=== PATIENT | male | born 1940 | race Caucasian/White ===

== ENCOUNTER 2019-07-16 05:42 | Day surgery (SDC) | payer MEDICARE, OTHER ==
[~2019-07-16] VITALS: Ht 182.9 cm; Wt 107.0 kg
[~2019-07-16 05:42] MED LIST: ASPIR 8181 M1 PO; ERLEADA60 MG PO; GLIP5 PO; HYDCHL25 PO; LISI20 PO; LOVA40 PO; LUPRON DEPOT45 MG IM; METF500 PO; NITR.4SL SL; WARF10 PO
--- NOTE | 2019-07-16 10:43 | NUR ---
POST OP S/P DUAL CHAMBER PACEMAKER TO LEFT CHEST WALL BY DR. ESTRADA TODAY. LEFT CHEST WALL DRESSING IS CDI WITH ICE BAG IN PLACE AND LEFT ARM IN SLING. PT EDUCATED ON LEFT ARM RESTRICTIONS AND VERBALIZED AN UNDERSTANDING. PT REPORTS MINIMAL PAIN AND DENIES NEED FOR PAIN MEDICATIONS. PT UP WITH SBA FROM W/C TO BED. ORDERED TELE FROM PCU AND WILL PLACE ONCE BOX ARRIVES TO UNIT. VSS. CALL LIGHT WITHIN REACH.
--- NOTE | 2019-07-16 16:32 | NUR ---
SHIFT SUMMARY NO ACUTE CHANGES SINCE ARRIVAL TO UNIT S/P DUAL CHAMBER PACEMAKER TO LEFT CHEST WALL. PT REPORTS 2/10 PAIN BUT DENIES NEED FOR PAIN MEDS. INDEP IN ROOM. LEFT ARM REMAINS IN SLING. PT FOLLOWING RESTRICTIONS. TELE IN PLACE. CALL LIGHT WITHIN REACH.
--- NOTE | 2019-07-17 05:37 | NUR ---
SHIFT SUMMARY: PT S/P INSERTION OF PACEMAKER. GAUZE DRESSING TO LEFT CHEST WALL CDI. SPLING IN PLACE AND PT COOPERATING WITH RESTRICTIONS. PT BLANCA PO. INDEPENDENT IN ROOM. DENIES NEED FOR PAIN MEDICATION. TELE SHOWS A/FIB IN 80'S. POSSIBLE DISCHARGE TODAY.
--- NOTE | 2019-07-17 07:50 | NUR ---
DR. WHITE NOTIFIED OF 8 BEATS V-TACH PER BUCKSHOT SWAGE OPERATOR. PT ASYMPTOMATIC. VSS. NO NEW ORDERS.
--- NOTE | 2019-07-17 09:12 | NUR ---
TO IMAGING FOR XRAY OF LEFT CHEST, PACEMAKER
--- NOTE | 2019-07-17 12:55 | NUR ---
DISCHARGE DISCHARGE INSTRUCTIONS, POST DEVICE IMPLANT INSTRUCTIONS, MEDICATION LIST AND FOLLOW UP APPOINTMENTS REVIEWED WITH PT. QUESTIONS ANSWERED. PT AND SPOUSE VERBALLY INDICATED UNDERSTANDING OF ALL INSTRUCTIONS RECEIVED. TELE BOX REMOVED AND RETURNED TO PCU
== END 2019-07-17 13:00 | disposition home or self-care (01) ==
LOC: MHTC 05:42 → SURS 10:05 → MHTC 07-17 13:00
DX: I49.5 Sick sinus syndrome (principal); I44.0 Atrioventricular block, first degree; I48.0 Paroxysmal atrial fibrillation; I11.0 Hypertensive heart disease with heart failure; I50.9 Heart failure, unspecified; E78.5 Hyperlipidemia, unspecified; I49.3 Ventricular premature depolarization; E66.9 Obesity, unspecified; E11.40 Type 2 diabetes mellitus with diabetic neuropathy, unspecified; E78.00 Pure hypercholesterolemia, unspecified; I25.10 Atherosclerotic heart disease of native coronary artery without angina pectoris; Z95.5 Presence of coronary angioplasty implant and graft; Z79.82 Long term (current) use of aspirin; Z79.01 Long term (current) use of anticoagulants; Z79.84 Long term (current) use of oral hypoglycemic drugs; Z68.32 Body mass index [BMI] 32.0-32.9, adult
CPT/HCPCS: 33208; 71045; 71046; 99152; 99153; A9270-GY; C1785; C1898; J0360; J0690; J1644; J2250; J3010; J7030; J7040; J7050

== ENCOUNTER 2022-02-13 11:37 | Emergency (ER) | payer MEDICARE ==
[~2022-02-13] VITALS: Ht 180.3 cm; Wt 94.8 kg
[2022-02-13 12:31] LABS: BASOPHILS ABSOLUTE AUTO 0.03 K/mm3 (0.00-0.23); BASOPHILS PERCENT AUTO 0 % (0-2); EOSINOPHILS ABSOLUTE AUTO 0.01 K/mm3 (0.00-0.68); EOSINOPHILS PERCENT AUTO 0 % (0-6); Hematocrit 40.2 % (37.0-53.0); Hemoglobin 13.7 g/dL (13.5-17.5); IMMATURE GRAN ABSOLUTE AUTO 0.03 K/mm3 (0.00-0.10); IMMATURE GRAN PERCENT AUTO 0 % (0-1); LYMPHOCYTES ABSOLUTE AUTO 1.07 K/mm3 (0.84-5.20); LYMPHOCYTES PERCENT AUTO 15 % (21-46); MONOCYTES ABSOLUTE AUTO 0.77 K/mm3 (0.16-1.47); MONOCYTES PERCENT AUTO 11 % (4-13); Mean Corpuscular HGB 30.2 pg (26.0-34.0); Mean Corpuscular HGB Conc 34.1 g/dL (31.5-36.5); Mean Corpuscular Volume 89 fL (80-100); Mean Platelet Volume 10.6 fL (9.1-12.4); NEUTROPHILS ABSOLUTE AUTO 5.32 K/mm3 (1.96-9.15); NEUTROPHILS PERCENT AUTO 74 % (41-73); Platelet Count 396 K/mm3 (150-400); RDW Coefficient Variation 12.6 % (11.7-14.2); RDW Standard Deviation 40.8 fL (35.1-46.3); Red Blood Cell Count 4.54 M/mm3 (4.30-5.90); White Blood Cell Count 7.23 K/mm3 (4.00-11.30)
[2022-02-13 12:48] LABS: Albumin, Blood 3.1 g/dL (3.4-5.0); Albumin/Globulin Ratio 0.8 (0.8-1.8); Bilirubin, Total 0.3 mg/dL (0.1-1.0); Calcium, Blood 9.2 mg/dL (8.5-10.1); Creatinine, Blood 1.22 mg/dL (0.60-1.20); Potassium, Blood 4.6 mmol/L (3.5-5.5); Total Protein, Blood 7.1 g/dL (6.4-8.2)
== END 2022-02-13 15:32 | disposition home or self-care (01) ==
LOC: ER 11:37
PROVIDERS: Physician Assistant
DX: R79.1 Abnormal coagulation profile (principal); T45.515A Adverse effect of anticoagulants, initial encounter; I48.91 Unspecified atrial fibrillation; Z95.0 Presence of cardiac pacemaker
CPT/HCPCS: 36415; 71045; 80053; 85025; 99283-25; A9270; J3430

== ENCOUNTER 2022-05-06 18:38 | Emergency (ER) | payer MEDICARE ==
[~2022-05-06] VITALS: Ht 180.3 cm; Wt 102.1 kg
== END 2022-05-06 23:21 | disposition home or self-care (01) ==
LOC: ER 18:38
DX: S01.512A Laceration without foreign body of oral cavity, initial encounter (principal); Y33.XXXA Other specified events, undetermined intent, initial encounter; Z79.82 Long term (current) use of aspirin; Z79.899 Other long term (current) drug therapy; Z79.84 Long term (current) use of oral hypoglycemic drugs; Z79.01 Long term (current) use of anticoagulants; Z88.8 Allergy status to other drugs, medicaments and biological substances; Z95.0 Presence of cardiac pacemaker

== ENCOUNTER 2022-12-23 14:06 | Inpatient (IN) | payer MEDICARE ==
[~2022-12-23] VITALS: Ht 180.3 cm; Wt 93.0 kg
[2022-12-23] MEDS ORDERED: METO50ER PO (14:19)
[2022-12-23] MEDS ORDERED: ELIGARD45 MG SQ (14:20)
[2022-12-23 15:11] LABS: BASOPHILS ABSOLUTE AUTO 0.02 K/mm3 (0.00-0.23); BASOPHILS PERCENT AUTO 0 % (0-2); EOSINOPHILS ABSOLUTE AUTO 0.03 K/mm3 (0.00-0.68); EOSINOPHILS PERCENT AUTO 1 % (0-6); Hematocrit 41.1 % (37.0-53.0); Hemoglobin 14.5 g/dL (13.5-17.5); IMMATURE GRAN ABSOLUTE AUTO 0.01 K/mm3 (0.00-0.10); IMMATURE GRAN PERCENT AUTO 0 % (0-1); LYMPHOCYTES PERCENT AUTO 24 % (21-46); MONOCYTES ABSOLUTE AUTO 0.43 K/mm3 (0.16-1.47); MONOCYTES PERCENT AUTO 9 % (4-13); Mean Corpuscular HGB 30.4 pg (26.0-34.0); Mean Corpuscular HGB Conc 35.3 g/dL (31.5-36.5); Mean Corpuscular Volume 86 fL (80-100); Mean Platelet Volume 12.4 fL (9.1-12.4); NEUTROPHILS ABSOLUTE AUTO 3.05 K/mm3 (1.96-9.15); NEUTROPHILS PERCENT AUTO 66 % (41-73); Platelet Count 223 K/mm3 (150-400); RDW Coefficient Variation 11.9 % (11.7-14.2); RDW Standard Deviation 37.4 fL (35.1-46.3); Red Blood Cell Count 4.77 M/mm3 (4.30-5.90); White Blood Cell Count 4.64 K/mm3 (4.00-11.30)
[2022-12-23 15:31] LABS: Albumin, Blood 3.4 g/dL (3.4-5.0); Bilirubin, Total 0.3 mg/dL (0.1-1.0); Bun/Creatinine Ratio 31.7 (12.0-20.0); Calcium, Blood 9.2 mg/dL (8.5-10.1); Creatinine, Blood 1.23 mg/dL (0.60-1.20); Globulin, Blood 3.5 g/dL (2.2-4.0); Potassium, Blood 4.7 mmol/L (3.5-5.5); Total Protein, Blood 6.9 g/dL (6.4-8.2)
[2022-12-23 16:12] LABS: Source, Urine Clean Catch
[2022-12-23 16:20] LABS: Appearance, Urine Clear (Clear); Bilirubin, Urine Neg (Neg); Blood, Urine Neg (Neg); Color, Urine Pale Yellow (P-Yellow); Glucose Qualitative, Urine 4+ (Neg); Ketones, Urine Neg (Neg); Leukocyte Esterase, Urine Neg (Neg); Nitrite, Urine Neg (Neg); Protein, Urine Neg (Neg); Specific Gravity, Urine 1.015 (1.003-1.022); Urobilinogen, Urine NORM (Normal)
[2022-12-23 23:30] VITALS: BP 154/79
[2022-12-24] VITALS (36 sets, daily range): BP systolic 81–163; BP diastolic 57–122
[2022-12-24] MEDS ORDERED: C COMPLEX1000 M1 PO (01:43)
[2022-12-24] MEDS ORDERED: ELEMENTAL ZINC30 MG PO (01:47)
[2022-12-24] MEDS ORDERED: VITAMIN D325 MC3 PO (01:48)
[2022-12-24 02:47] LABS: BASOPHILS ABSOLUTE AUTO 0.03 K/mm3 (0.00-0.23); BASOPHILS PERCENT AUTO 1 % (0-2); EOSINOPHILS ABSOLUTE AUTO 0.04 K/mm3 (0.00-0.68); EOSINOPHILS PERCENT AUTO 1 % (0-6); Hematocrit 37.4 % (37.0-53.0); Hemoglobin 12.9 g/dL (13.5-17.5); IMMATURE GRAN ABSOLUTE AUTO 0.02 K/mm3 (0.00-0.10); IMMATURE GRAN PERCENT AUTO 0 % (0-1); LYMPHOCYTES ABSOLUTE AUTO 1.64 K/mm3 (0.84-5.20); LYMPHOCYTES PERCENT AUTO 30 % (21-46); MONOCYTES PERCENT AUTO 11 % (4-13); Mean Corpuscular HGB 30.4 pg (26.0-34.0); Mean Corpuscular HGB Conc 34.5 g/dL (31.5-36.5); Mean Corpuscular Volume 88 fL (80-100); Mean Platelet Volume 11.7 fL (9.1-12.4); NEUTROPHILS PERCENT AUTO 57 % (41-73); Platelet Count 184 K/mm3 (150-400); RDW Coefficient Variation 12.1 % (11.7-14.2); RDW Standard Deviation 38.6 fL (35.1-46.3); Red Blood Cell Count 4.24 M/mm3 (4.30-5.90); White Blood Cell Count 5.43 K/mm3 (4.00-11.30)
[2022-12-24 03:05] LABS: Magnesium, Blood 1.8 mg/dL (1.6-2.4)
[2022-12-24 03:08] LABS: Albumin, Blood 2.9 g/dL (3.4-5.0); Bilirubin, Total 0.3 mg/dL (0.1-1.0); Bun/Creatinine Ratio 29.2 (12.0-20.0); Calcium, Blood 8.4 mg/dL (8.5-10.1); Creatinine, Blood 1.13 mg/dL (0.60-1.20); Globulin, Blood 2.8 g/dL (2.2-4.0); Total Protein, Blood 5.7 g/dL (6.4-8.2)
--- NOTE | 2022-12-24 06:14 | NUR ---
AOX4. NSR/A-PACED WITH FREQUENT EPISODES OF V-TACH. AMIODARONE BOLUS AND CONTINUOUS INFUSION STARTED. VTACH EPISODES PERSIST BUT LESS FREQUENTLY. PATIENT ASYMPTOMATIC DURING THESE. ROOM AIR. NPO.
--- NOTE | 2022-12-24 07:15 | NUR ---
CARE ASSUMPTION DURING BEDSIDE SHIFT REPORT William BRADLEY RN THE PT IS SITTING UP IN BED AWAKE ON RM AIR. PT'S IS AT BEDSIDE. THE PT IS ALERT AND ORIENTED LOOKING WELL DENYING ANY SYMPTOMS. PT'S MONITOR SHOWING SR 70'S TO ATRIAL PACED IN THE 70'S. BP WNL AND STABLE.
--- NOTE | 2022-12-24 14:37 | NUR ---
UPDATE THIS RN SPOKE W DR. ESTRADA REGARDING THE PLAN FOR THE PT. THIS RN WAS GIVEN ORDERS TO RESUME THE PT'S COUMADIN, ORDER FULL PACEMAKER INTEROGATION, AND FINISH THE AMIODARONE GTT. THIS RN CALLED THE [facility] AND SPOKE W SHEET METAL WORKER WHO STATED SHE WOULD "LET THEM KNOW".
--- NOTE | 2022-12-24 15:09 | NUR ---
UPDATE DR. ESTRADA CONSULTING THE PT AT BEDSIDE. AFTER CONSULT DR. ESTRADA GAVE THIS RN VERBAL ORDER FOR PO AMIODARONE 400MG BID STARTING TONIGHT AT 2100. THIS ORDER READ BACK TO DR. SZYMANSKI WHO CONFIRMED THIS WAS CORRECT. NO PLAN FOR PROCEDURE AT THIS TIME.
--- NOTE | 2022-12-24 15:33 | NUR ---
Pt. is awake, sitting up on the side of his bed and eating a meal when he welcomes my visit. Pt. is pleasant. Facilitate a life review. Listen with empathy, interest, and a calming presence. Pt. displays evidence of trust and openness. Consider matters of personal sang and belief. Prayed with Pt. Pt. verbalized gratitude for the spiritual care visit and welcomed this blue line trimmer to return.
[2022-12-24 15:36] LABS: International Normalized Ratio 1.75; Prothrombin Time Results 17.8 Sec (9.7-11.5)
--- NOTE | 2022-12-24 16:43 | NUR ---
DAY SHIFT SUMMARY PT HAS REMAINED ALERT AND ORIENTED THIS SHIFT COMMUNICATING APPROPRIATELY W STAFF. BP HAS REMAINED WNL AND STABLE. MONITOR SHOWING ATRIAL PACED RYTHYM IN THE 60'S. PT HAVE NON-SUSTAINED VTACH THIS AM BUT HAS NOT HAD ANY SINCE RECIEVING HIS AM METOPROLOL. PT GIVEN A DIET AND ATE LUNCH. CBG'S THIS AFTERNOON AFTER EATING LUNCH WAS 387, NOTIFIED AND PT GIVEN 15 UNITS OF INSULIN PER NEW HIGH SLIODING SCALE. PT TRANSFERED TO PCU 7 IN , BS REPORT GIVEN TO PAT Arciniega
--- NOTE | 2022-12-24 18:37 | NUR ---
Pt to room at approx 1645, bedside reprot form drapery hand. No acute changes noted. Will continue to monitor.
--- NOTE | 2022-12-24 20:33 | NUR ---
ASSUMPTION OF CARE THIS RN ASSUMED CARE OF PATIENT AT 1900. REPORT TAKEN FROM PAT MEEKS. PT A&O X4. ABLE TO MAKE NEEDS KNOWN. ATRIAL PACED RHYTHM WITH HR 60'S. BP STABLE. AFEBRILE. ON RA WITH SPO2 >92%. USING URINAL/BATHROOM INDEPENDENTLY. DENIES CHEST PAIN/PRESSURE. AMIO GTT INFUSING PER EMAR. BED IN LOWEST POSITION AND CALL LIGHT WITHIN REACH.
--- NOTE | 2022-12-24 22:57 | NUR ---
PATIENT UPDATE PT BEGAN HAVING INCREASED RUNS OF VTACH, MOST RANGING FROM 6-10 BEATS A MINUTE, HOWEVER, TELE NOTED A RUN OF 31 AND 42 BEATS. PT ASSESSED DURING THESE EPISODES. BP STABLE. PT A&O, DENIES ALL S/S OF CARDIAC DISTRESS, REPORTS "FEELING GOOD". THIS RN REVIEWED CARDIOLOGY CONSULT NOTE BY MD ESTRADA WITH RECOMMENDATION TO KEEP MAGNESIUM >2.0; THIS RN NOTES THAT ON PREVIOUS MAG CHECK AT 0300 12/24/22 MAG WAS 1.8. CALL PLACED TO [place]AN REGARDING PATIENTS RUNS OF VTACH AND MAGNESIUM LEVEL; ORDER FOR 2GM OF MAGNESIUM NOW; RECHECK LEVELS ON AM LABS. CURRENTLY INFUSING MAGNESIUM. AMIO GTT FINISHING PER EMAR. NO OTHER CHANGE IN CONDITION NOTED. WILL CONTINUE TO MONITOR CLOSELY. DNI CODE STATUS VERIFIED WITH PATIENT; PATIENT VERBALIZED DESIRE FOR CHEST COMPRESSIONS AND DEFIB IF NEEDED.
--- NOTE | 2022-12-25 02:00 | NUR ---
PATIENT UPDATE CALL PLACED TO MD ESTRADA REGARDING PT WITH INCREASED PROLONGED RUNS OF VTACH, WITH SOME RANGING FROM 30-50 BEAT RUNS. UPDATED ON REPLACEMENT OF MAG AND PATIENT BEING MEDICATED PER EMAR WITH CARDIAC MEDS PREVIOUSLY. MD ESTRADA VERBALIZED TO CONTINUE MONITORING WITH NO FURTHER ORDERS AT THIS TIME. PT CONTINUES TO BE ASYMPTOMATIC. BP STABLE. ATRIAL PACED RHYTHM IN THE 60'S. WILL CONTINUE TO MONITOR
[2022-12-25 03:30] VITALS: BP 114/56
[2022-12-25 05:02] LABS: BASOPHILS ABSOLUTE AUTO 0.03 K/mm3 (0.00-0.23); BASOPHILS PERCENT AUTO 1 % (0-2); EOSINOPHILS ABSOLUTE AUTO 0.06 K/mm3 (0.00-0.68); EOSINOPHILS PERCENT AUTO 1 % (0-6); Hematocrit 39.4 % (37.0-53.0); Hemoglobin 13.5 g/dL (13.5-17.5); IMMATURE GRAN ABSOLUTE AUTO 0.01 K/mm3 (0.00-0.10); IMMATURE GRAN PERCENT AUTO 0 % (0-1); LYMPHOCYTES ABSOLUTE AUTO 1.69 K/mm3 (0.84-5.20); LYMPHOCYTES PERCENT AUTO 33 % (21-46); MONOCYTES ABSOLUTE AUTO 0.61 K/mm3 (0.16-1.47); MONOCYTES PERCENT AUTO 12 % (4-13); Mean Corpuscular HGB 30.4 pg (26.0-34.0); Mean Corpuscular HGB Conc 34.3 g/dL (31.5-36.5); Mean Corpuscular Volume 89 fL (80-100); NEUTROPHILS ABSOLUTE AUTO 2.78 K/mm3 (1.96-9.15); NEUTROPHILS PERCENT AUTO 54 % (41-73); Platelet Count 196 K/mm3 (150-400); RDW Coefficient Variation 12.3 % (11.7-14.2); RDW Standard Deviation 39.8 fL (35.1-46.3); Red Blood Cell Count 4.44 M/mm3 (4.30-5.90); White Blood Cell Count 5.18 K/mm3 (4.00-11.30)
[2022-12-25 05:18] LABS: International Normalized Ratio 1.56
[2022-12-25 05:34] LABS: Albumin, Blood 2.9 g/dL (3.4-5.0); Anion Gap 8 mmol/L (6-16); Blood Urea Nitrogen 22 mg/dL (8-24); Bun/Creatinine Ratio 20.2 (12.0-20.0); CO2, Blood 24 mmol/L (21-32); Calcium, Blood 8.9 mg/dL (8.5-10.1); Chloride, Blood 106 mmol/L (98-108); Creatinine, Blood 1.09 mg/dL (0.60-1.20); Glomerular Filtration Rate 68 (60-); Glucose, Blood 192 mg/dL (70-99); Magnesium, Blood 2.3 mg/dL (1.6-2.4); Phosphorus, Blood 2.8 mg/dL (2.5-4.9); Potassium, Blood 3.8 mmol/L (3.5-5.5); Sodium, Blood 138 mmol/L (136-145)
--- NOTE | 2022-12-25 05:47 | NUR ---
SHIFT SUMMARY SEE PREVIOUS NOTES REGARDING RUNS OF VTACH. PT CONTINUES TO HAVE OCCASIONAL RUNS OF VTACH BUT APPEAR TO HAVE LESSENED SINCE AMIO GTT AND MG FINISHED INFUSING. PT WITH STABLE VITALS OTHERWISE. ATRIAL PACED WITH HR 60'S. CALLING APPROPRIATELY. BED IN LOWEST POSITION AND CALL LIGHT WITHIN REACH. THIS RN WILL CONTINUE TO MONITOR UNTIL SHIFT CHANGE AT 0700.
[2022-12-25 07:49] VITALS: BP 108/58
[2022-12-25] MEDS ORDERED: ASPI81CH PO (09:38)
[2022-12-25] MEDS ORDERED: ATOR40TA PO (09:38)
[2022-12-25] MEDS ORDERED: Amiodarone HCl200 MG PO (09:38)
[2022-12-25] MEDS ORDERED: INSULANI SC (09:39)
[2022-12-25] MEDS ORDERED: METF500C PO (09:45)
[2022-12-25] MEDS ORDERED: HUMULIN R100 UNIT/2 SC (09:45)
[2022-12-25 11:35] VITALS: BP 130/85
--- NOTE | 2022-12-25 12:37 | NUR ---
Pt. is awake and welcomes my visit. Pt. is pleasant and spouse is pleasant. Facilitate a life review and normalized the Patient experience as the Pt. is anticipating to be discharged today. Copnsidered matters of sang and belief. Pt. displays evidence of being aware and engaged and spouse displays evidence of being supportive. This backroom associate excused himself as staff prepping for discharge became more frequent. Both Pt. and spouse verbalize gratitude for the spiritual care support.
--- NOTE | 2022-12-25 12:49 | NUR ---
DISCHARGE NOTE ALERT, ORIENTED, COOPERATIVE. SPOUSE ATTENTIVE AT BEDSIDE. DENIES CP AND SOB. SATTING AT 96% ON ROOM AIR. TELE ATRIAL PACED AT 60 WITH MULTIFOCAL PVCS AND ATRIAL FLUTTER. PER SEWING MACHINE OPERATOR ZIPPER OCCASIONAL RUNS OF VTACH, NO THIS SHIFT. TOLERATING ADA AND CARDIAC DIET AND THIN LIQUIDS. VOIDING WELL. SBA UP TO BATHROOM. DISCHARGE ORDERS PLACED. DISCHARGE EDUCATION GIVEN ON NEW MEDICATIONS INCLUDING INSULIN ADMIN, AND FOLLOW UP WITH NEW PCP AND DR ESTRADA. IV'S DC'D WNL. PATIENT LEFT UNIT AT 1240 VIA WHEELCHAIR WITH SPOUSE FOR HOME.
== END 2022-12-25 14:13 | disposition home or self-care (01) | DRG 309 ==
LOC: ER 14:06 → ICUE 14:07 → PCU 22:45 → ICUE 12-24 15:30 → PCU 12-24 16:38
PROVIDERS: Family Medicine; Internal Medicine Cardiovascular Disease; Student in an Organized Health Care Education/Training Program; ADMIT Student in an Organized Health Care Education/Training Program
DX: I47.20 Ventricular tachycardia, unspecified (principal); I50.32 Chronic diastolic (congestive) heart failure; E11.65 Type 2 diabetes mellitus with hyperglycemia; I25.10 Atherosclerotic heart disease of native coronary artery without angina pectoris; I48.0 Paroxysmal atrial fibrillation; G47.33 Obstructive sleep apnea (adult) (pediatric); E78.00 Pure hypercholesterolemia, unspecified; E66.9 Obesity, unspecified; I44.0 Atrioventricular block, first degree; I49.3 Ventricular premature depolarization; I77.810 Thoracic aortic ectasia; I11.0 Hypertensive heart disease with heart failure; I49.5 Sick sinus syndrome; Z79.82 Long term (current) use of aspirin; Z79.84 Long term (current) use of oral hypoglycemic drugs; Z95.0 Presence of cardiac pacemaker; Z79.811 Long term (current) use of aromatase inhibitors; Z79.01 Long term (current) use of anticoagulants; Z79.899 Other long term (current) drug therapy; Z85.46 Personal history of malignant neoplasm of prostate; Z86.73 Personal history of transient ischemic attack (TIA), and cerebral infarction without residual deficits; Z86.79 Personal history of other diseases of the circulatory system; Z95.5 Presence of coronary angioplasty implant and graft; Z98.890 Other specified postprocedural states; Z68.27 Body mass index [BMI] 27.0-27.9, adult
CPT/HCPCS: 36415; 80053; 80069; 81003; 82010; 82947; 83036; 83690; 83735; 83930; 84484; 85025; 85610; 93005; 93010; 93308; 93321; 94762; 96360; 99284-25; A9270; G0378; J0282; J1815; J3475; J7030; J7060